=== PATIENT | female | born 1960 | race Caucasian/White ===

== ENCOUNTER 2021-02-18 08:17 | Outpatient (CLI) | payer OTHER ==
[2021-02-18 17:27] LABS: SARS-CoV-2 PCR by NAA Not Detected (NotDetected)
== END 2021-02-18 08:18 | disposition home or self-care (01) ==
LOC: CSHLAB 08:17
PROVIDERS: ATTEND Internal Medicine Gastroenterology
DX: Z01.812 Encounter for preprocedural laboratory examination (principal); Z20.822 Contact with and (suspected) exposure to COVID-19; D64.9 Anemia, unspecified; K21.9 Gastro-esophageal reflux disease without esophagitis
CPT/HCPCS: U0003; U0005

== ENCOUNTER 2021-02-22 10:48 | Day surgery (SDC) | payer OTHER ==
[2021-02-18 13:50] VITALS: BMI 31.1
[2021-02-22] MEDS ORDERED: Lidocaine 1% MPF 2 ML VIAL ONE (11:25)
[2021-02-22] MEDS ORDERED: Fentanyl 100 MCG/2 ML VIAL ONE (12:29)
[2021-02-22] MEDS ORDERED: PROPOFOL 20 ML ONE ×2 (12:29)
== END 2021-02-22 13:37 | disposition home or self-care (01) ==
LOC: CSHSDC 10:48
PROVIDERS: ATTEND Internal Medicine Gastroenterology
PROC: 0DJD8ZZ Inspection of Lower Intestinal Tract, Via Natural or Artificial Opening Endoscopic (ICD-10-PCS; principal; 2021-02-22)
PROC: 0DB98ZZ Excision of Duodenum, Via Natural or Artificial Opening Endoscopic (ICD-10-PCS; principal; 2021-02-22)
DX: D50.9 Iron deficiency anemia, unspecified (principal); K21.9 Gastro-esophageal reflux disease without esophagitis; K63.89 Other specified diseases of intestine; K57.30 Diverticulosis of large intestine without perforation or abscess without bleeding; Z98.84 Bariatric surgery status
CPT/HCPCS: 88305; J2704; J3010